=== PATIENT | male | born 1965 | race Caucasian/White ===

== ENCOUNTER 2018-02-07 15:13 | Outpatient (CLI) | payer BC, OTHER ==
--- NOTE | 2018-02-08 07:53 | XRAY Report ---
Reason: CERVICAL SPINE PAIN, IBS Procedure Date: 02/07/2018 Accession Number: [id number] / [id number] Procedure: XRN - Cervical Spine Complete CPT Code: FULL RESULT: EXAM: CERVICAL SPINE RADIOGRAPHY EXAM DATE: 02/07/2018 03:56 PM. CLINICAL HISTORY: Cervical spine pain, irritable bowel syndrome. COMPARISONS: None. TECHNIQUE: 5 views. FINDINGS: Alignment: Normal. No spondylolisthesis or scoliosis. Bones: The cervical vertebral bodies and posterior elements are well-visualized from the skull base through C7-T1. No fractures or bone lesions. Disks: There is mild narrowing of disk space heights which is most pronounced at C4 through C7. Facets: Radiographs are not suggestive of significant facet or uncovertebral disease. Neural Foramina: Mild narrowing of the C6-C7 neural foramen which remains patent on a bony basis. Mild narrowing of the right C6-C7 neural foramen which remains patent on a bony basis. Osseous patency of the remaining foramina is also preserved bilaterally. Soft Tissues: Normal. No prevertebral soft tissue swelling. The visualized lung apices are clear. IMPRESSION: Degenerative changes as described. [facility]
== END 2018-02-07 15:14 | disposition home or self-care (01) ==
LOC: DI.N 15:13
PROVIDERS: ATTEND Specialist
DX: M54.2 Cervicalgia (principal); M48.02 Spinal stenosis, cervical region; K58.9 Irritable bowel syndrome, unspecified
CPT/HCPCS: 72050

== ENCOUNTER 2018-03-16 11:22 | Day surgery (SDC) | payer BC, OTHER ==
[2018-03-16] MEDS ORDERED: LACTATED RINGERS 1,000 ML IV ONE (11:33)
[2018-03-16] MEDS ORDERED: fentaNYL 250 MCG/5 ML VIAL IVP ONE (13:51)
[2018-03-16] MEDS ORDERED: MIDAZOLAM 2 MG/2 ML VIAL IVP ONE (13:51)
[2018-03-16 14:21] VITALS: BP 115/86
== END 2018-03-16 11:23 | disposition home or self-care (01) ==
LOC: SDS 11:22
PROVIDERS: ATTEND Surgery
PROC: 0DBN8ZX Excision of Sigmoid Colon, Via Natural or Artificial Opening Endoscopic, Diagnostic (ICD-10-PCS; 2018-03-16)
PROC: 0DBH8ZX Excision of Cecum, Via Natural or Artificial Opening Endoscopic, Diagnostic (ICD-10-PCS; principal; 2018-03-16 12:45)
DX: K58.0 Irritable bowel syndrome with diarrhea (principal); K57.30 Diverticulosis of large intestine without perforation or abscess without bleeding; K64.8 Other hemorrhoids; K21.9 Gastro-esophageal reflux disease without esophagitis; I10 Essential (primary) hypertension; Z87.11 Personal history of peptic ulcer disease; Z72.0 Tobacco use; Z79.899 Other long term (current) drug therapy
CPT/HCPCS: 45380; J3010; J7120